=== PATIENT | male | born 1995 | race Caucasian/White ===

== ENCOUNTER 2018-07-14 05:08 | Emergency (ER) | payer BC, OTHER ==
[~2018-07-14] VITALS: Ht 182.9 cm; Wt 77.1 kg
[2018-07-14] MEDS ORDERED: NS IV 1000 ML 1,000 ML IV STA (05:24)
[2018-07-14] MEDS ORDERED: ONDANSETRON 4 MG/2 ML (SDV) Z0FRAN IVP ONE (05:30)
[2018-07-14] MEDS ORDERED: PANTOPRAZOLE 40 MG (PROTONIX) VIAL IV ONE (05:30)
[2018-07-14 05:38] LABS: BASOPHILS % (AUTO) 0 % (0-10); EOSINOPHILS # (AUTO) 0.1 10^3/uL (0.0-0.3); EOSINOPHILS % (AUTO) 1 % (0-10); HEMATOCRIT 46 % (40-54); LYMPHOCYTES # (AUTO) 1.5 X 10^3 (1.0-4.0); LYMPHOCYTES % (AUTO) 16 % (12-44); MEAN CORPUSCULAR HEMOGLOBIN 31 PG (25-34); MEAN CORPUSCULAR HGB CONC 37 G/DL (32-36); MEAN CORPUSCULAR VOLUME 83 FL (80-99); MEAN PLATELET VOLUME 11.1 FL (7.4-10.4); MONOCYTES # (AUTO) 0.6 X 10^3 (0.0-1.0); MONOCYTES % (AUTO) 7 % (0-12); NEUTROPHILS # (AUTO) 6.9 X 10^3 (1.8-7.8); NEUTROPHILS % (AUTO) 76 % (42-75); PLATELET COUNT 177 10^3/uL (130-400); RED BLOOD COUNT 5.48 10^6/uL (4.35-5.85); RED CELL DISTRIBUTION WIDTH 12.2 % (10.0-14.5)
[2018-07-14 05:38] LABS: BILIRUBIN,URINE NEGATIVE (NEGATIVE); CLARITY,URINE CLEAR; COLOR,URINE YELLOW; GLUCOSE, URINE (UA) NEGATIVE (NEGATIVE); KETONES,URINE NEGATIVE (NEGATIVE); LEUKOCYTE ESTERASE ,URINE NEGATIVE (NEGATIVE); NITRITE,URINE NEGATIVE (NEGATIVE); PH,URINE 7 (5-9); PROTEIN,URINE NEGATIVE (NEGATIVE); UROBILINOGEN,URINE NORMAL (NORMAL)
--- NOTE | 2018-07-14 05:39 | ED Abdominal Pain ---
General Chief Complaint: General Problems/Pain Stated Complaint: DIZZINESS,ABD PAIN Nursing Triage Note: REFLUX, N/V, CONSTIPATION, DIZZINESS Sepsis Screen: No Definite Risk Source of Information: Patient Exam Limitations: No Limitations (ALICIA SHARP MD) History of Present Illness Date Seen by Provider: Jul 14, 2018 Time Seen by Provider: 05:21 Initial Comments Here with report of abdominal pain every time he eats with nausea and vomiting at least once a day for the last 3 days. Feels weak and woke up with his heart racing. Tried to drink a lot of water yesterday because he is concerned about dehydration. Denies diarrhea. Hasn't really had any significant bowel movements recently. Denies blood in urine or stool. Seems to be precipitated from after drinking for a few days more heavily. He states he usually drinks on the weekends and did drink last and Friday at least before this all started. He was concerned that maybe he irritated his stomach from drinking alcohol. Denies any bloody vomitus. States he gets burning pain from his abdomen up into his chest after eating. Timing/Duration: 3-4 Days, Changing Over Time, Intermittent Severity/Quality: Moderate, Severe, Burning Location: Epigastric Radiation: Chest Activities at Onset: None Modifying Factors: Worsens With Eating Associated Symptoms: No Back Pain; Chest Pain; No Fever/Chills; Heartburn, Nausea/Vomiting, Shortness of Air (with the episodes but not persistent); No Weakness (ALICIA SHARP MD) Allergies and Home Medications Allergies Coded Allergies: No Known Drug Allergies (Unverified , 07/14/18) Home Medications Omeprazole 20 Mg Capsule.dr, 20 MG PO BID Prescribed by: DIANE TINEO on 07/14/18 0639 Ondansetron 4 Mg Tab.rapdis, 4 MG SL Q4H PRN for NAUSEA/VOMITING-1ST LINE Prescribed by: DIANE TINEO on 07/14/18 0639 Patient Home Medication List Home Medication List Reviewed: Yes (ALICIA SHARP MD) Review of Systems Review of Systems Constitutional: no symptoms reported EENTM: No Symptoms Reported Respiratory: See HPI Cardiovascular: See HPI, Irregular Heart Rate (fast rate), Palpitations Gastrointestinal: Abdominal Pain; Denies Constipated, Denies Diarrhea; Nausea, Vomiting Genitourinary: No Symptoms Reported Musculoskeletal: no symptoms reported Skin: no symptoms reported Psychiatric/Neurological: See HPI, Anxiety; Denies Numbness, Denies Tingling ( ALICIA SHARP MD) All Other Systems Reviewed Negative Unless Noted: Yes (ALICIA SHARP MD) Past Pghlemt-Muzkxe-Oeqinm Hx Past Med/Social Hx: Reviewed Nursing Past Med/Soc Hx (ALICIA SHARP MD) Patient Social History Alcohol Use: Occasionally Uses Alcohol Beverage of Choice: Beer, Rum, Whiskey, Traphill, Vodka Recreational Drug Use: No Smoking Status: Never a Smoker 2nd Hand Smoke Exposure: No Recent Foreign Travel: No Contact w/Someone Who Travel: No Recent Infectious Disease Expo: No Recent Hopitalizations: No (ALICIA SHARP MD) Immunizations Up To Date Tetanus Booster (TDap): Unknown PED Vaccines UTD: Yes (ALICIA SHARP MD) Seasonal Allergies Seasonal Allergies: No (ALICIA SHARP MD) Past Medical History Surgeries: No Respiratory: No Cardiac: No Neurological: No Genitourinary: No Gastrointestinal: No Musculoskeletal: No Endocrine: No HEENT: No Cancer: No Psychosocial: No Integumentary: No Blood Disorders: No (ALICIA SHARP MD) Family Medical History Reviewed Nursing Family Hx (ALICIA SHARP MD) Physical Exam Vital Signs Vital Signs - First Documented 07/14/18 05:22 Temp 97.5 Pulse 108 Resp 18 B/P (MAP) 156/89 (111) Pulse Ox 98 O2 Delivery Room Air (DIANE NICOLE MD) Vital Signs Capillary Refill : Less Than 3 Seconds (ALICIA SHARP MD) Height/Weight/BMI Height: 6'0" Weight: 170lbs. oz. 77.139206tm; BMI Method:Stated General Appearance: WD/WN, no apparent distress HEENT: PERRL/EOMI, pharynx normal Neck: full range of motion, supple Respiratory: lungs clear, normal breath sounds, no respiratory distress, no accessory muscle use Cardiovascular: no murmur, tachycardia Gastrointestinal: normal bowel sounds, non tender, soft, no organomegaly, no pulsatile mass Extremities: non-tender, normal inspection Back: normal inspection, no CVA tenderness, no vertebral tenderness Neurologic/Psychiatric: alert, oriented x 3 Skin: normal color, warm/dry (ALICIA SHARP MD) Progress/Results/Core Measures Results/Orders Lab Results Laboratory Tests Test 07/14/18 05:25 07/14/18 05:32 Range/Units White Blood Count 9.0 4.3-11.0 10^3/uL Red Blood Count 5.48 4.35-5.85 10^6/uL Hemoglobin 17.0 13.3-17.7 G/DL Hematocrit 46 40-54 % Mean Corpuscular Volume 83 80-99 FL Mean Corpuscular Hemoglobin 31 25-34 PG Mean Corpuscular Hemoglobin Concent 37 H 32-36 G/DL Red Cell Distribution Width 12.2 10.0-14.5 % Platelet Count 177 130-400 10^3/uL Mean Platelet Volume 11.1 H 7.4-10.4 FL Neutrophils (%) (Auto) 76 H 42-75 % Lymphocytes (%) (Auto) 16 12-44 % Monocytes (%) (Auto) 7 0-12 % Eosinophils (%) (Auto) 1 0-10 % Basophils (%) (Auto) 0 0-10 % Neutrophils # (Auto) 6.9 1.8-7.8 X 10^3 Lymphocytes # (Auto) 1.5 1.0-4.0 X 10^3 Monocytes # (Auto) 0.6 0.0-1.0 X 10^3 Eosinophils # (Auto) 0.1 0.0-0.3 10^3/uL Basophils # (Auto) 0.0 0.0-0.1 10^3/uL Sodium Level 140 135-145 MMOL/L Potassium Level 3.6 3.6-5.0 MMOL/L Chloride Level 105 98-107 MMOL/L Carbon Dioxide Level 23 21-32 MMOL/L Anion Gap 12 5-14 MMOL/L Blood Urea Nitrogen 17 7-18 MG/DL Creatinine 1.14 0.60-1.30 MG/DL Estimat Glomerular Filtration Rate > 60 BUN/Creatinine Ratio 15 Glucose Level 101 70-105 MG/DL Calcium Level 9.7 8.5-10.1 MG/DL Corrected Calcium 8.5-10.1 MG/DL Total Bilirubin 2.0 H 0.1-1.0 MG/DL Aspartate Amino Transf (AST/SGOT) 18 5-34 U/L Alanine Aminotransferase (ALT/SGPT) 20 0-55 U/L Alkaline Phosphatase 61 40-136 U/L Troponin I < 0.30 <0.30 NG/ML C-Reactive Protein High Sensitivity 0.12 0.00-0.50 MG/DL Total Protein 7.5 6.4-8.2 GM/DL Albumin 4.9 H 3.2-4.5 GM/DL Amylase Level 28 25-125 U/L Lipase 21 8-78 U/L Thyroid Stimulating Hormone (TSH) 2.08 0.35-4.94 UIU/ML Urine Color YELLOW Urine Clarity CLEAR Urine pH 7 5-9 Urine Specific [place] 1.010 L 1.016-1.022 Urine Protein NEGATIVE NEGATIVE Urine Glucose (UA) NEGATIVE NEGATIVE Urine Ketones NEGATIVE NEGATIVE Urine Nitrite NEGATIVE NEGATIVE Urine Bilirubin NEGATIVE NEGATIVE Urine Urobilinogen NORMAL NORMAL MG/DL Urine Leukocyte Esterase NEGATIVE NEGATIVE Urine RBC (Auto) NEGATIVE NEGATIVE Urine RBC NONE /HPF Urine WBC NONE /HPF Urine Squamous Epithelial Cells RARE /HPF Urine Crystals NONE /LPF Urine Bacteria NEGATIVE /HPF Urine Casts NONE /LPF Urine Mucus NEGATIVE /LPF Urine Culture Indicated NO Urine Opiates Screen NEGATIVE NEGATIVE Urine Oxycodone Screen NEGATIVE NEGATIVE Urine Methadone Screen NEGATIVE NEGATIVE Urine Propoxyphene Screen NEGATIVE NEGATIVE Urine Barbiturates Screen NEGATIVE NEGATIVE Ur Tricyclic Antidepressants Screen NEGATIVE NEGATIVE Urine Phencyclidine Screen NEGATIVE NEGATIVE Urine Amphetamines Screen NEGATIVE NEGATIVE Urine Methamphetamines Screen NEGATIVE NEGATIVE Urine Benzodiazepines Screen NEGATIVE NEGATIVE Urine Cocaine Screen NEGATIVE NEGATIVE Urine Cannabinoids Screen NEGATIVE NEGATIVE (DIANE NICOLE MD) Medications Given in ED Current Medications Medications Dose Ordered Sig/Yana Route Start Time Stop Time Status Last Admin Dose Admin Ondansetron HCl 4 mg ONCE ONCE IVP 07/14/18 05:30 07/14/18 05:31 DC 07/14/18 05:32 4 MG Pantoprazole 40 mg ONCE ONCE IV 07/14/18 05:30 07/14/18 05:31 DC 07/14/18 05:32 40 MG (DIANE NICOLE MD) Vital Signs/I&O 07/14/18 05:22 Temp 97.5 Pulse 108 Resp 18 B/P (MAP) 156/89 (111) Pulse Ox 98 O2 Delivery Room Air (DIANE NICOLE MD) Blood Pressure Mean: 111 Progress Progress Note : Progress Note Seen and evaluated. IV, labs, UA, normal saline 1 L bolus, Zofran 4 mg IV and Protonix 40 mg IV ordered. EKG ordered due to tachycardia. Monitor patient. (ALICIA SHARP MD) Progress Note : Time: 06:25 Progress Note Care of this patient was assumed from Dr. Sharp at 06:10. Bedside checkout was performed. Lipase and troponin were pending at that time. All labs were reviewed and were unremarkable except for a mildly elevated bilirubin. Patient received 1 L of IV fluid lifestyle changes length. We also discussed need for follow-up. See discharge instructions. Patient was re-examined and found to have VS WNL and no abdominal TTP. (DIANE NICOLE MD) Initial ECG Impression Date: Jul 14, 2018 Initial ECG Impression Time: 05:37 Initial ECG Rate: 90 Initial ECG Rhythm: Normal Sinus Comment Sinus rhythm with normal axis. No evidence of ST elevation [place]. No previous available for comparison. Interpreted by me. (ALICIA SHARP MD) Departure Impression Primary Impression: Atypical chest pain Additional Impressions: Nausea and vomiting Qualified Codes: R11.2 - Nausea with vomiting, unspecified Alcohol abuse Palpitations Elevated bilirubin Disposition: HOME, SELF-CARE Condition: Improved Departure-Patient Inst. Decision time for Depature: 06:25 (DIANE NICOLE MD) Referrals: [facility] (PCP/Family) Primary Care Physician Patient Instructions: Alcohol Use - When Is Drinking a Problem?, Palpitations Add. Discharge Instructions: Drink plenty of clear liquids. Gradually advance your diet with small quantities of bland food as tolerated. Start omeprazole as prescribed. Avoid all alcohol consumption for a couple of months. Then consume alcohol only in extreme moderation only if you are fully recovered. Follow up at the [facility] or the primary care provider of your choice. You may need further work-up which might include a gallbladder ultrasound, stomach and esophagus scope, repeat labs, and/or cardiac monitoring. Please discuss these things with your primary care provider. Continue Omeprazole for at least one month. Use Zofran (Ondansetron) as prescribed for nausea and vomiting. Avoid the following: Eating close to bed time, eating large meals, spicy food, fatty and greasy food, alcohol, tobacco, caffeine, carbonation, chocolate, mints , NSAID medications such as ibuprofen or naproxen, tomato products, citrus fruits and juices, or anything else you know irritates your stomach. Return to the ER if you have worsening symptoms. All discharge instructions reviewed with patient and/or family. Voiced understanding. Scripts Ondansetron (Zofran Odt) 4 Mg Tab.rapdis 4 MG SL Q4H PRN for NAUSEA/VOMITING-1ST LINE, #10 TAB Prov: DIANE NICOLE MD 07/14/18 Omeprazole (Omeprazole) 20 Mg Capsule. 20 MG PO BID, #60 CAP Prov: DIANE NICOLE MD 07/14/18 Work/School Note: School/Childcare Release Date Seen in the Emergency Department: Jul 14, 2018 Return to School: Jul 15, 2018 Restrictions: No Restrictions ALICIA SHARP MD Jul 14, 2018 05:39 DIANE NICOLE MD Jul 14, 2018 06:37
[2018-07-14 05:48] LABS: BACTERIA,URINE NEGATIVE /HPF; SQUAMOUS EPITHELIAL CELL,UR RARE /HPF
[2018-07-14 05:49] LABS: AMPHETAMINE SCREEN, URINE NEGATIVE (NEGATIVE); BARBITURATE SCREEN URINE NEGATIVE (NEGATIVE); BENZODIAZEPINES SCREEN URINE NEGATIVE (NEGATIVE); CANNABINOID SCREEN, URINE NEGATIVE (NEGATIVE); COCAINE SCREEN URINE NEGATIVE (NEGATIVE); METHADONE STAT NEGATIVE (NEGATIVE); METHAMPHETAMINE SCREEN URINE S NEGATIVE (NEGATIVE); OPIATE SCREEN URINE NEGATIVE (NEGATIVE); OXYCODONE STAT NEGATIVE (NEGATIVE); PROPOXYPHENE STAT NEGATIVE (NEGATIVE); TRICYCLIC ANTIDEPRESSANTS SCRE NEGATIVE (NEGATIVE)
[2018-07-14 05:54] LABS: ALANINE AMINOTRANSFERASE 20 U/L (0-55); ALBUMIN 4.9 GM/DL (3.2-4.5); ALKALINE PHOSPHATASE 61 U/L (40-136); BUN/CREATININE RATIO 15; CALCIUM 9.7 MG/DL (8.5-10.1); CARBON DIOXIDE 23 MMOL/L (21-32); CHLORIDE 105 MMOL/L (98-107); CREATININE SERUM 1.14 MG/DL (0.60-1.30); GFR ESTIMATED > 60; GLUCOSE 101 MG/DL (70-105); POTASSIUM 3.6 MMOL/L (3.6-5.0); SODIUM 140 MMOL/L (135-145); TOTAL PROTEIN 7.5 GM/DL (6.4-8.2)
[2018-07-14 06:22] LABS: AMYLASE 28 U/L (25-125); LIPASE 21 U/L (8-78)
[2018-07-14] MEDS ORDERED: ONDA4TAB8 SL (06:39)
[2018-07-14] MEDS ORDERED: OMEP20CA12 PO (06:39)
[2018-07-14 06:42] VITALS: BP 137/77
== END 2018-07-14 06:41 | disposition home or self-care (01) ==
LOC: ER 05:09
DX: R07.9 Chest pain, unspecified (principal); R11.2 Nausea with vomiting, unspecified; R00.2 Palpitations; F10.10 Alcohol abuse, uncomplicated; E80.7 Disorder of bilirubin metabolism, unspecified
CPT/HCPCS: 36415; 80053; 80306; 81000; 82150; 83690; 84443; 84484; 85025; 86141; 93005; 96361; 96374; 96375